=== PATIENT | female | born 1985 | race Caucasian/White ===

== ENCOUNTER 2016-04-18 12:39 | Emergency (ER) | payer MEDICAID ==
--- NOTE | 2016-04-18 12:50 | ER Document Report ---
ED Medical Screen (RME) - General Stated Complaint: FALL/LEG INJURY Notes: Right medial leg hematoma after falling proximally 4 feet striking it on a ladder last Tuesday I greeted and performed a rapid initial assessment of this patient. Comprehensive ED assessment and evaluation of the patient, analysis of test results and completion of the medical decision making process will be conducted by additional ED providers. TRAVEL OUTSIDE OF THE [place] IN LAST 30 DAYS: No - Related Data Allergies/Adverse Reactions: No Known Allergies Allergy (Verified 11/06/15 10:49) Past Medical History Pulmonary Medical History: Endocrine Medical History: Denies: Hx Hyperthyroidism, Hx Hypothyroidism Renal/ Medical History: Reports: Hx Kidney Stones - 3 years ago GI Medical History: Reports: Hx Gastroesophageal Reflux Disease - during . Denies: Hx Hiatal Hernia, Hx Ulcer Psychiatric Medical History: Reports: Hx Depression, Hx Post Traumatic Stress Disorder Denies: Hx Bipolar Disorder, Hx Schizophrenia Infectious Medical History: Denies: Hx HIV Past Surgical History: Reports: Hx Section - Immunizations Hx Diphtheria, Pertussis, Tetanus Vaccination: Yes
[2016-04-18] MEDS ORDERED: DIPH/PERTUSS(ACELL)/TETANUS VAC/PF 0.5 ML SYR (>=10YO) IM ONE (13:10)
[2016-04-18] MEDS ORDERED: KETOROLAC TROMETHAMINE 60 MG/2 ML SDV IM ONE (13:20)
--- NOTE | 2016-04-18 13:27 | ER Document Report ---
ED Extremity Problem, Lower - General Chief Complaint: Leg Pain Stated Complaint: FALL/LEG INJURY Time seen by provider: 13:22 TRAVEL OUTSIDE OF THE [place] IN LAST 30 DAYS: No - HPI Patient complains to provider of: Pain Location: Thigh - Pt states she fell off a ladder 2 days ago -- has developed large bruise on inner aaspect of R thigh. No other injuries. - Related Data Allergies/Adverse Reactions: No Known Allergies Allergy (Verified 04/18/16 12:50) Past Medical History - General Information source: Patient - Social History Smoking Status: Current Every Day Smoker Cigarette use (# per day): Yes Chew tobacco use (# tins/day): No Smoking Education Provided: Yes Frequency of alcohol use: Occasional Drug Abuse: None Family History: None, Reviewed & Not Pertinent Patient has suicidal ideation: No Patient has homicidal ideation: No Pulmonary Medical History: Endocrine Medical History: Denies: Hx Hyperthyroidism, Hx Hypothyroidism Renal/ Medical History: Reports: Hx Kidney Stones - 3 years ago. Denies: Hx Peritoneal Dialysis GI Medical History: Reports: Hx Gastroesophageal Reflux Disease - during . Denies: Hx Hiatal Hernia, Hx Ulcer Psychiatric Medical History: Reports: Hx Depression, Hx Post Traumatic Stress Disorder Denies: Hx Bipolar Disorder, Hx Schizophrenia Infectious Medical History: Denies: Hx HIV Past Surgical History: Reports: Hx Section - Immunizations Hx Diphtheria, Pertussis, Tetanus Vaccination: Yes Review of Systems - Review of Systems Constitutional: No symptoms reported EENT: No symptoms reported Cardiovascular: No symptoms reported Respiratory: No symptoms reported Gastrointestinal: No symptoms reported Musculoskeletal: See HPI, Other - R leg pain -: Yes All other systems reviewed and negative Physical Exam - General General appearance: Appears well In distress: Mild - Respiratory Respiratory status: No respiratory distress Breath sounds: Normal - Cardiovascular Rhythm: Regular Heart sounds: Normal auscultation - Extremities Thigh: Tender - there is mild-mod TTP of the medial aspect of her R thigh diffusely with a large ecchymosis and central healing abrasion. There is FROM of her leg and it is N/V intact Course - Diagnostic Test Radiology reviewed: Image reviewed - neg fx Discharge - Discharge Clinical Impression: Contusion of leg, right Qualifiers: Encounter type: initial encounter Qualified Code(s): S80.11XA - Contusion of right lower leg, initial encounter Condition: Stable Disposition: HOME, SELF-CARE Additional Instructions: rest, alternate ice and heat, take meds as prescribed, return if worse Prescriptions: Tramadol HCl 50 mg PO BID #14 tablet Referrals: YESENIA PRATER MD [ACTIVE STAFF] - Follow up as needed
[2016-04-18 15:38] VITALS: BP 114/79
== END 2016-04-18 15:37 | disposition home or self-care (01) ==
LOC: ER 12:39
DX: S70.11XA Contusion of right thigh, initial encounter (principal); W11.XXXA Fall on and from ladder, initial encounter; Y92.009 Unspecified place in unspecified non-institutional (private) residence as the place of occurrence of the external cause; F17.210 Nicotine dependence, cigarettes, uncomplicated
CPT/HCPCS: 99283; 96372; 90471; 73552; 90715; J1885

== ENCOUNTER 2016-07-31 13:30 | Emergency (ER) | payer MEDICAID ==
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
[2016-07-31 15:47] LABS: ABSOLUTE EOSINOPHILS # (AUTO) 0.1 10^3/uL (0.0-0.6); ABSOLUTE LYMPHOCYTES (AUTO) 2.6 10^3/uL (0.5-4.7); ABSOLUTE MONOCYTES (AUTO) 0.3 10^3/uL (0.1-1.4); BASOPHILS % (AUTO) 0.5 % (0-2); EOSINOPHILS % (AUTO) 0.9 % (0-6); HEMATOCRIT 41.4 % (36.0-47.0); HEMOGLOBIN 14.2 g/dL (12.0-15.5); HGB HCT DIFFERENCE 1.2; LYMPHOCYTES % (AUTO) 37.5 % (13-45); MEAN CORPUSCULAR HEMOGLOBIN 30.8 pg (27.0-33.4); MEAN CORPUSCULAR HGB CONC 34.3 g/dL (32.0-36.0); MEAN CORPUSCULAR VOLUME 90 fl (80-97); MONOCYTES % (AUTO) 3.7 % (3-13); RED CELL DISTRIBUTION WIDTH 14.6 % (11.5-14.0); SEGMENTED NEUTROPHILS % (AUTO) 57.4 % (42-78)
[2016-07-31 15:49] LABS: ALANINE AMINOTRANSFERASE 31 U/L (9-52); ALBUMIN 5.2 g/dL (3.5-5.0); ALCOHOL 240 mg/dL (NONE DETECTED); ALKALINE PHOSPHATASE 85 U/L (38-126); ANION GAP 20 (5-19); ASPARTATE AMINO TRANSFERASE 25 U/L (14-36); BILIRUBIN,DIRECT 0.3 mg/dL (0.0-0.4); BILIRUBIN,TOTAL 0.8 mg/dL (0.2-1.3); BLOOD UREA NITROGEN 7 mg/dL (7-20); CARBON DIOXIDE 19 mmol/L (22-30); CHLORIDE 110 mmol/L (98-107); CREATININE RESULT 0.69 mg/dL (0.52-1.25); GLUCOSE 96 mg/dL (75-110); POTASSIUM 4.4 mmol/L (3.6-5.0); SODIUM 149.1 mmol/L (137-145); TOTAL PROTEIN 8.2 g/dL (6.3-8.2)
[2016-07-31 15:53] LABS: APPEARANCE,URINE CLEAR; BILIRUBIN,URINE NEGATIVE (NEGATIVE); GLUCOSE, URINE NEGATIVE (NEGATIVE); KETONES,URINE NEGATIVE (NEGATIVE); LEUKOCYTE ESTERASE,URINE NEGATIVE (NEGATIVE); NITRITE,URINE NEGATIVE (NEGATIVE); PROTEIN,URINE NEGATIVE (NEGATIVE); URINE SPECIFIC GRAVITY 1.005; UROBILINOGEN,URINE NEGATIVE mg/dL (<2.0)
[2016-07-31 16:06] LABS: URINE BARBITURATES SCREEN NEGATIVE; URINE METHADONE SCREEN NEGATIVE; URINE OPIATES LOW NEGATIVE; URINE PHENCYCLIDINE SCREEN NEGATIVE
[2016-07-31] MEDS ORDERED: CITALOPRAM HYDROBROMIDE 20 MG TABLET PO ONE (17:11)
[2016-07-31] MEDS ORDERED: CLONAZEPAM 1 MG TABLET PO SCH (18:00)
[2016-07-31] MEDS ORDERED: CLONAZEPAM 1 MG TABLET ONE (18:51)
[2016-07-31] MEDS: BUSPIRONE HCL 10 MG TABLET PO PRN (20:55)
[2016-08-01] MEDS: BUSPIRONE HCL 10 MG TABLET PO PRN ×2 (05:50→12:42)
--- NOTE | 2016-08-01 09:43 | ER Document Report ---
Doctor's Note Notes: 08/01/16 09:41 Medical rounds: Chart reviewed and patient interviewed briefly. Patient denies any somatic complaints. Vital signs are satisfactory. Laboratory values satisfactory. Patient is alert, oriented, and conversant. She remains medically stable, pending further psychosocial evaluation and recommendations for disposition.
[2016-08-01] MEDS ORDERED: CITALOPRAM HYDROBROMIDE 20 MG TABLET PO SCH (10:00)
--- NOTE | 2016-08-01 10:19 | EKG REPORT ---
SEVERITY:- BORDERLINE ECG - SINUS RHYTHM BORDERLINE T ABNORMALITIES, ANTERIOR LEADS : Confirmed by: Billy Bustamante 01-Aug-2016 10:19:15
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
[2016-08-01 14:15] VITALS: BP 121/74
== END 2016-08-01 14:17 | disposition home or self-care (01) ==
LOC: ER 13:30
DX: R45.851 Suicidal ideations (principal); F10.10 Alcohol abuse, uncomplicated; F17.200 Nicotine dependence, unspecified, uncomplicated
CPT/HCPCS: 93005; 99284; 36415; 80307 ×4; 85025; 80053; 81001; 93010; J3490 ×4

== ENCOUNTER 2016-08-17 20:46 | Emergency (ER) | payer MEDICAID ==
[2016-08-18] MEDS ORDERED: HYDROCODONE/ACETAMINOPHEN 5-325 MG TABLET PO ONE (02:42)
--- NOTE | 2016-08-18 02:42 | ER Document Report ---
ED Extremity Problem, Lower - General Chief Complaint: Foot Injury Stated Complaint: FOOT INJURY Time Seen by Provider: 08/18/16 02:28 Mode of Arrival: Wheelchair Information source: Patient Notes: Patient is a 30-year-old female who presents to the ER today for left foot pain after she actually dropped a shelf on her foot prior to arrival while helping a friend move. Patient states that it is red, swollen and starting to bruise and hurts to walk on. She denies any numbness or tingling. TRAVEL OUTSIDE OF THE [place] IN LAST 30 DAYS: No - Related Data Allergies/Adverse Reactions: No Known Allergies Allergy (Verified 07/31/16 13:36) Past Medical History - General Information source: Patient - Social History Smoking Status: Current Every Day Smoker Chew tobacco use (# tins/day): No Frequency of alcohol use: Occasional Family History: None, Reviewed & Not Pertinent Patient has suicidal ideation: No Patient has homicidal ideation: No Pulmonary Medical History: Endocrine Medical History: Denies: Hx Hyperthyroidism, Hx Hypothyroidism Renal/ Medical History: Reports: Hx Kidney Stones - 3 years ago. Denies: Hx Peritoneal Dialysis GI Medical History: Reports: Hx Gastroesophageal Reflux Disease - during . Denies: Hx Hiatal Hernia, Hx Ulcer Psychiatric Medical History: Reports: Hx Depression, Hx Post Traumatic Stress Disorder Denies: Hx Bipolar Disorder, Hx Schizophrenia Infectious Medical History: Denies: Hx HIV Past Surgical History: Reports: Hx Section - Immunizations Hx Diphtheria, Pertussis, Tetanus Vaccination: Yes Review of Systems - Review of Systems Constitutional: No symptoms reported EENT: No symptoms reported Cardiovascular: No symptoms reported Respiratory: No symptoms reported Gastrointestinal: No symptoms reported Genitourinary: No symptoms reported Female Genitourinary: No symptoms reported Musculoskeletal: See HPI Skin: No symptoms reported Hematologic/Lymphatic: No symptoms reported Neurological/Psychological: No symptoms reported Physical Exam - Vital signs Vitals: Temp Pulse Resp BP Pulse Ox 97.7 F 103 H 16 134/81 H 100 08/17/16 23:34 08/17/16 23:34 08/17/16 23:34 08/17/16 23:34 08/17/16 23:34 - Notes Notes: PHYSICAL EXAMINATION: GENERAL: Appears uncomfortable, in no acute distress. HEAD: Atraumatic, normocephalic. EYES: Pupils equal round and reactive to light, extraocular movements intact, sclera anicteric, conjunctiva are normal. ENT: ear canals without erythema or foreign body, TMs pearly tavera with good bony landmarks, nares patent, oropharynx clear without exudates. Moist mucous membranes. NECK: Normal range of motion, supple without lymphadenopathy LUNGS: CTAB and equal. No wheezes rales or rhonchi. HEART: Regular rate and rhythm without murmurs EXTREMITIES: Normal range of motion, no pitting edema. No cyanosis. NEUROLOGICAL: Cranial nerves grossly intact. Normal sensory/motor exams. PSYCH: Normal mood, normal affect. SKIN: Warm, Dry, normal turgor, approximately 3 cm in diameter of erythema, slight ecchymosis noted to the dorsal left foot, tender to palpation Course - Re-evaluation Re-evalutation: 08/18/16 03:48 X-ray of the left foot negative for any acute pathology. Patient place an Huan wrap and given crutches. - Vital Signs Vital signs: Temp Pulse Resp BP Pulse Ox 97.7 F 103 H 16 134/81 H 100 08/17/16 23:34 08/17/16 23:34 08/17/16 23:34 08/17/16 23:34 08/17/16 23:34 Procedures - Immobilization Left Foot Time completed: 04:00 Pre-Proc Neuro Vasc Exam: Normal Immobilizer type: Huan wrap Performed by: RN Post-Proc Neuro Vasc Exam: Normal Alignment checked and good: Yes Discharge - Discharge Clinical Impression: Left ankle injury Qualifiers: Encounter type: initial encounter Qualified Code(s): S99.912A - Unspecified injury of left ankle, initial encounter Condition: Stable Disposition: HOME, SELF-CARE Additional Instructions: Return immediately for any new or worsening symptoms. Follow up with primary care provider, call tomorrow to make followup appointment. Prescriptions: Ibuprofen [Motrin 800 mg Tablet] 800 mg PO Q8H PRN #30 tab PRN Reason: Forms: Return to Work
[2016-08-18 03:54] VITALS: BP 128/77
== END 2016-08-18 03:53 | disposition home or self-care (01) ==
LOC: ER 20:46
DX: S99.912A Unspecified injury of left ankle, initial encounter (principal); S90.32XA Contusion of left foot, initial encounter; M79.672 Pain in left foot; W20.8XXA Other cause of strike by thrown, projected or falling object, initial encounter; Y93.89 Activity, other specified; F17.200 Nicotine dependence, unspecified, uncomplicated
CPT/HCPCS: 99283

== ENCOUNTER 2016-08-18 13:27 | Emergency (ER) | payer MEDICAID | END 2016-08-18 17:00 | disposition home or self-care (01) | LOC: ER 13:27 | DX: S90.32XA Contusion of left foot, initial encounter (principal); W20.8XXA Other cause of strike by thrown, projected or falling object, initial encounter | CPT/HCPCS: 99282 ==